=== PATIENT | female | born 1955 | race Caucasian/White ===

== ENCOUNTER → 2018-03-11 | Day surgery (SDC) | payer OTHER ==
[~2018-03-11] VITALS: Ht 162.6 cm; Wt 68.0 kg
[~2018-03-11] MED LIST: PERCOCET 5-3251 EACH PO
--- NOTE | 2018-03-11 11:17 | MAMMOGRAPHY REPORT ---
EXAMINATION: US GUIDED NEEDLE LOCALIZATION BREAST, RIGHT, 2 SITES POSTPROCEDURE RIGHT BREAST MAMMOGRAM CLINICAL INFORMATION: Needle localization of right breast cancer and right axillary metastatic lymph node. COMPARISON: Mammogram and ultrasound dated 08/26/2017. TECHNIQUE NEEDLE LOC: Proper informed consent is obtained from the patient after discussion of the procedure, potential risks and complications, and alternatives including declining the procedure today. Patient was given an opportunity for questions. The patient appeared to understand. The patient consented to the procedure and signed the consent form. RIGHT BREAST CANCER IN THE 9:00 POSITION: GUIDANCE: Ultrasound APPROACH: Lateral TARGET: Mass with biopsy clip in the 9:00 position. ANESTHESIA: 10 mL Xylocaine 2%. LOCALIZATION MARKER: Kopans 5 cm needle The skin was prepped and local anesthesia administered. The needle was positioned and position assessed real-time with ultrasound. The wire was hooked into position. The patient tolerated the procedure well and had no immediate complication. Postprocedure mammogram was obtained in 2 views. Diagram was marked for the surgeon. The mammogram demonstrates the target is located around the thick segment of the wire, 3.7 cm deep to the skin with 10 cm of the wire remaining external to the skin. No significant hematoma is seen. RIGHT AXILLARY LYMPH NODE: GUIDANCE: Ultrasound APPROACH: Lateral TARGET: Right axillary lymph node with biopsy clip ANESTHESIA: 10 mL Xylocaine 2%. LOCALIZATION MARKER: Kopans 5 cm needle The skin was prepped and local anesthesia administered. The needle was positioned and position assessed real-time with ultrasound. The wire was hooked into position. The patient tolerated the procedure well and had no immediate complication. Postprocedure mammogram was obtained in 2 views. Diagram was marked for the surgeon. The mammogram demonstrates the target is located around the thick segment of the wire, 3 cm deep to the skin with 9 cm of the wire remaining external to the skin. IMPRESSION: Status post right breast cancer and right axillary lymph node needle localization with wire hooked into position. Right breast cancer: The target is located around the thick segment of the wire, 3.7 cm deep to the skin with 10 cm of the wire remaining external to the skin. Right axillary lymph node: The target is located around the thick segment of the wire, 3 cm deep to the skin with 9 cm of the wire remaining external to the skin.
--- NOTE | 2018-03-11 16:01 | Operative Report ---
Operative/Inv Procedure Report Surgery Date: 03/11/18 Name of Procedure: Needle localization right breast lumpectomy Injection of blue dye for the identification of the sentinel lymph node, right axillary lymph node excision, also with needle localization Pre-Operative Diagnosis: Right breast cancer metastatic to the ipsilateral axilla, after neoadjuvant chemotherapy Post-Operative Diagnosis: Same Estimated Blood Loss: scant Surgeon/Civil Engineering Director: Kina NOEL,Will ENCISO Anesthesia: general endotracheal tube Operative/Procedure Note Note: Patient was positioned supine, after successful induction of general anesthesia with her right arm abducted, 2 mL of diluted blue dye under aseptic conditions were injected at the areolar edge 10:00 aiming subdermally towards the nipple retroareolar. Her right axilla and chest were prepped and draped in a sterile fashion. There were 2 wires one was emanating from the axilla and one from the breast laterally. Preoperative lymphoscintigraphy showed no uptake of radiotracer in the axilla, neoprobe negative. We approached the axilla first we began incision along the skin lines about 3 1/2 cm long lateral to the border of the pectoralis muscle including the wire injected local anesthetic the mid incision with a 15 blade deepened into the subcutaneous tissue and followed the wire through the clavipectoral fascia, to its tip there was some fibrotic tissue architectural distortion a vague sense of fullness but no definite discrete typical lymph node could be seen but sometimes they're fatty replaced and it could be changes from chemotherapy, there was no blue dye seen here. While dissecting this out as if a lumpectomy and avoided injury to surrounding structures such as nerves and vessels some smaller vessels required cautery but no suture, the tip of this wire did track subpectorally. We explored the surrounding area and found no other lymph nodes or blue dye and I consider this specimen good approximation of the sentinel node. At this point we deferred completion axillary lymph node dissection as discussed previously. The area was checked for hemostasis irrigated and closed in layers, 3-0 Vicryl deep and a running subcuticular Monocryl for the skin itself followed by Mastisol Steri- Strips Telfa and Tegaderm. Then we addressed the breast in similar fashion, following the skin lines we aimed an incision about 2 cm inferior to the wire insertion site, based on the mammogram showing the position of the wire and the clip. The area was injected with local anesthetic and then the incision was made with a 15 blade, initially we dissected superiorly towards the wire in the subcutaneous layer to bring the wire into the incision, then following the trajectory of the wire a lumpectomy shaped like a cylinder aiming centrally was created with the cautery with traction and counter traction using Allis clamps paying care not to veer too close to the wire itself until we were beyond it, completing the lumpectomy. Again the area was checked for hemostasis using cautery no deep suture was required overall similar to the axilla there was no definite mass just a relative fullness some fibrotic tissue some dense breast tissue. We did orient the specimen with suture for the pathologist. The area was irrigated checked again and then closed back up in layers using 3-0 Vicryl sutures in the deep subcutaneous layer followed by running subcuticular Monocryl for the skin itself followed by Mastisol Steri-Strips Telfa and Tegaderm. EBL minimal lap and sponge counts correct wound expectancy clean IV fluids crystalloid complications none patient tolerated the procedure well was extubated and returned to recovery room in satisfactory condition.
--- NOTE | 2018-03-11 22:20 | MAMMOGRAPHY REPORT ---
EXAMINATION: MM NEEDLE LOCALIZATION SPECIMEN FROM THE RIGHT BREAST AND THE RIGHT AXILLA. CLINICAL INDICATION: Excision of right breast cancer metastatic right axillary lymph node. COMPARISON: Preoperative needle localization films from earlier today. TECHNIQUE: Single radiographs of the right breast and right axillary specimens were performed. FINDINGS: The grafts of the excised surgical specimen from the right breast and from the right axilla show that the hookwire is delivered intact and the marker clips are identified in each of the specimens. IMPRESSION: Satisfactory excision of the targeted lesions from the right breast in the right axilla. These findings were communicated to the surgeon in the OR at the time of specimen radiography.
--- NOTE | 2018-03-15 11:02 | NUCLEAR MEDICINE REPORT ---
EXAMINATION: LYMPHOSCINTIGRAPHY CLINICAL INFORMATION: Right breast cancer. COMPARISON: None. TECHNIQUE: A total of 1.1 mCi technetium 99m Lymphoseek was injected in divided doses around the right areola by Alexus Limon [facility]. Images of the right breast and axilla in the anterior, [place], and right lateral projections were obtained with simultaneous visualization of the body silhouette using a cobalt flood source, with the patient positioned between the flood source and the gamma camera. Images were obtained up to 60 minutes post injection FINDINGS: No sentinal node is visualized in the right axilla. IMPRESSION: A sentinal node in the right axilla is not visualized. Following this procedure, the patient was transported to the operating room for a probe guided lymph node resection.
== END ==
LOC: STS 00:54 → EDSTATUS 07:00 → STS 07:00 → XRY 10:00
DX: C50.911 Malignant neoplasm of unspecified site of right female breast (principal); C77.3 Secondary and unspecified malignant neoplasm of axilla and upper limb lymph nodes; Z17.1 Estrogen receptor negative status [ER-]; Z92.21 Personal history of antineoplastic chemotherapy; Z90.710 Acquired absence of both cervix and uterus
CPT/HCPCS: 76942; 77065-RT; 88307; A9520; J0690; J2001; J2250